=== PATIENT | female | born 1995 | race Caucasian/White ===

== ENCOUNTER 2016-11-01 07:29 | Emergency (ER) | payer BC ==
[2016-11-01] MEDS ORDERED: Tetan/Diph/Pertus SYR(Tdap)* 0.5 ML SYR(BOOSTRIX) use SYR IM ONE (08:57)
[2016-11-01 09:16] VITALS: BP 135/75
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
== END 2016-11-01 09:21 | disposition home or self-care (01) ==
LOC: ED 07:29
DX: S70.352A Superficial foreign body, left thigh, initial encounter (principal); W34.010A Accidental discharge of airgun, initial encounter; Y93.9 Activity, unspecified; Y92.9 Unspecified place or not applicable; Z23 Encounter for immunization; F32.9 Major depressive disorder, single episode, unspecified
CPT/HCPCS: 90471; 90715; 99282

== ENCOUNTER 2017-08-30 23:48 | Emergency (ER) | payer BC ==
--- OUTSIDE RECORDS SUMMARY | 2017-08-31 | XMS REPORT ---
:1995 Author Organization [facility] Address [address] [place] [address] Care Team Providers Name Role Phone Lauro Farnsworth Unavailable Unavailable PROBLEMS Type Condition ICD9-CM Code BTD09-YO Code Onset Condition SNOMED Code Dates Status Problem Amenorrhea, N91.2 Active 36824389 unspecified Problem Nicotine F17.210 Active 251299560 dependence, cigarettes, uncomplicated Problem Premenstrual N94.3 Active 29983788 tension syndrome Problem Family history of Z80.41 Active 711679942 malignant neoplasm of ovary ALLERGIES No Information ENCOUNTERS Encounter Location Date Diagnosis [facility] [address], [place], [place] [id number] [facility] [address] Sep, [place], [place] [id number] [facility] [address] August, [place] [id number] [facility] [address] Nov, Family history of OBGYN [facility], malignant neoplasm of [place] [id number] ovary Z80.41 [facility] [address] Nov, Family history of OBGYN [facility], malignant neoplasm of [place] [id number] ovary Z80.41 ; Encounter for routine checking of intrauterine contraceptive device Z30.431 and Amenorrhea, unspecified N91.2 [facility] [address] [facility] Nov, Encounter for [address] [place], gynecological examination [place] [id number] (general) (routine) without abnormal findings Z01.419 ; Nicotine dependence, cigarettes, uncomplicated F17.210 and Family history of malignant neoplasm of ovary Z80.41 [facility] [address] Nov, OBGYN [place] [id number] [facility] [address] [facility] 12 Mar, [address] [place] [id number] [facility] [address] [facility] 08 Feb, [address] [place], [place] [id number] [facility] [address] [facility] 14 Dec, 2015 Encounter for routine [address] [place], checking of intrauterine [place] [id number] contraceptive device Z30.431 [facility] [address] [facility] Nov, Encounter for insertion [address] [place], of intrauterine [place] [id number] contraceptive device Z30.430 [facility] 103 Sep, Ovulation bleeding N92.3 OBGYN [facility], ; Encounter for other [place] [id number] general counseling and advice on contraception Z30.09 and Family history of malignant neoplasm of ovary Z80.41 [facility] 103 Sep, Ovulation bleeding N92.3 OBGYN [facility], ; Family history of [place] [id number] malignant neoplasm of ovary Z80.41 and Encounter for other general counseling and advice on contraception Z30.09 [facility] [address] 16 Sep, 2015 [place]BGYN [place] [id number] [facility] [address] [facility] 16 Sep, [address] screening [address] [place] [address], for infections with a [place] [id number] predominantly sexual mode of transmission Z11.3 ; Encounter for gynecological examination (general) (routine) with abnormal findings Z01.411 ; Encounter for screening for malignant neoplasm of cervix Z12.4 ; Encounter for other general counseling and advice on contraception Z30.09 ; Nicotine dependence, cigarettes, uncomplicated F17.210 ; Premenstrual tension syndrome N94.3 ; Family history of malignant neoplasm of ovary Z80.41 and Ovulation bleeding N92.3 IMMUNIZATIONS No Known Immunizations SOCIAL HISTORY Never Assessed REASON FOR REFERRAL FUNCTIONAL STATUS PLAN OF CARE VITAL SIGNS MEDICATIONS Unknown Medications PROCEDURES No Known procedures RESULTS No Results REASON FOR VISIT Mirena MEDICAL (GENERAL) HISTORY Type Description Date Medical History Anxiety Medical History Back Problems Surgical History wisdom tooth extraction 2010
--- NOTE | 2017-08-31 01:27 | ED ---
GI/ HPI - HPI Summary HPI Summary: 21F presents with cramping abdominal pain for the past two week. She denies any vaginal discharge. She denies any vaginal bleeding. She states never had before. She states she is concerned that IUD may have moved. IUD strings were not able to seem her primary today. She denies any painful urination. She states she has vomited a couple times due to the pain. She denies any nausea. She denies any fevers. She denies any flank pain. She admits to constipation but denies any diarrhea. She states the pain is intermittent. It is located in the suprapubic. No history of pelvic infections. IUD has been in place for 2 years. - History of Current Complaint Chief Complaint: EDUrogenitalProblems Time Seen by Provider: 08/31/17 00:40 Stated Complaint: ABD PAIN Pain Intensity: 7 - Allergy/Home Medications Allergies/Adverse Reactions: Allergies Allergy/AdvReac Type Severity Reaction Status Date / Time No Known Allergies Allergy Verified 08/30/17 23:54 PMH/Surg Hx/FS Hx/Imm Hx Cardiovascular History: Denies: Hx Myocardial Infarction Psychiatric History: Reports: Hx Depression Infectious Disease History: No Infectious Disease History: Denies: Traveled Outside the US in Last 30 Days - Family History Known Family History: Positive: Cardiac Disease - Positive to grandfather - Social History Alcohol Use: None Substance Use Type: Reports: None Hx Tobacco Use: No Smoking Status (MU): Unknown if Ever Smoked Review of Systems Negative: Fever Negative: Chest Pain Negative: Shortness Of Breath Positive: Abdominal Pain, Vomiting All Other Systems Reviewed And Are Negative: Yes Physical Exam Triage Information Reviewed: Yes Vital Signs On Initial Exam: Initial Vitals Temp Pulse Resp BP Pulse Ox 98.8 F 72 14 146/80 100 08/30/17 23:50 08/30/17 23:50 08/30/17 23:50 08/30/17 23:50 08/30/17 23:50 Vital Signs Reviewed: Yes Appearance: Positive: Well-Appearing Skin: Positive: Warm, Dry Head/Face: Positive: Normal Head/Face Inspection Eyes: Positive: Normal, Conjunctiva Clear Pelvic Exam: Positive: External Exam Normal, Speculum Exam Normal, Blood - trace , Tender w/ Cervical Motion - no chanadlier sign, Other - strings present in IUD Musculoskeletal: Positive: Normal Neurological: Positive: Normal Psychiatric: Positive: Normal Diagnostics - Vital Signs Vital Signs Temp Pulse Resp BP Pulse Ox 08/31/17 00:59 74 131/83 99 08/30/17 23:50 98.8 F 72 14 146/80 100 - Laboratory Result Diagrams: 08/31/17 01:39 08/31/17 01:39 Lab Statement: Any lab studies that have been ordered have been reviewed, and results considered in the medical decision making process. GIGU Course/Dx - Course Course Of Treatment: 21F presents with cramping abdominal pain for the past two week. She denies any vaginal discharge. She denies any vaginal bleeding. She states never had before. She states she is concerned that IUD may have moved. IUD strings were not able to seem her primary today. She denies any painful urination. She states she has vomited a couple times due to the pain. She denies any nausea. She denies any fevers. She denies any flank pain. She admits to constipation but denies any diarrhea. She states the pain is intermittent. It is located in the suprapubic. No history of pelvic infections. IUD has been in place for 2 years. on exam has strings for IUD in place. tenderness over cervic. no abnormal vaginal discharge. patient requesting iud removal which removed. labs wnl. unable to perform u/s due to it being night and no availability. told to follow up with primary. patient understand and agrees with plan. 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
[2017-08-31 01:51] LABS: ABS Basophils 0.1 10^3/ul (0-0.2); ABS Eosinophils 0.1 10^3/ul (0-0.6); ABS Lymphocytes 2.9 10^3/ul (1.0-4.8); ABS Monocytes 0.7 10^3/ul (0-0.8); ABS Neutrophils 4.7 10^3/ul (1.5-7.7); ABS Nucleated RBC 0 10^3/ul; Eosinophil % 0.6 % (0-6); Hematocrit 38 % (35-47); Hemoglobin 13.3 g/dl (12.0-16.0); Lymphocyte % 33.9 % (25-47); Mean Corpuscular HGB Conc 35 g/dl (31-36); Mean Corpuscular Hemoglobin 31 pg (27-31); Mean Corpuscular Volume 90 fL (80-97); Mean Platelet Volume 8.8 um3 (7.4-10.4); Nucleated Red Blood Cells % 0.1; Platelet Count 215 10^3/ul (150-450); Red Blood Count 4.24 10^6/ul (4.0-5.4); Red Cell Distribution Width 14 % (10.5-15); White Blood Count 8.4 10^3/ul (3.5-10.8)
[2017-08-31 02:42] LABS: Urine Appearance Cloudy; Urine Blood Negative (Negative); Urine Color Yellow; Urine Ketones Negative (Negative); Urine Protein Negative (Negative); Urine Specific Gravity 1.016 (1.010-1.030); Urine Urobilinogen Negative (Negative)
[2017-08-31 02:53] VITALS: BP 123/72
== END 2017-08-31 02:55 | disposition home or self-care (01) ==
LOC: ED 23:48
DX: R10.9 Unspecified abdominal pain (principal); Z97.5 Presence of (intrauterine) contraceptive device
CPT/HCPCS: 36415; 80053; 81003; 84702; 85025; 86141; 87480; 87510; 87660; 99282

== ENCOUNTER 2019-03-05 16:42 | Emergency (ER) | payer BC ==
--- OUTSIDE RECORDS SUMMARY | 2019-03-05 16:50 | XMS REPORT | Continuity of Care Document ---
:1995 External Reference #:[id number] Author Name Kathryn Gonzalez NP Address [address] [facility] [place] [address] Care Team Providers Name Role Phone Kenia Calero M.D. - Family Medicine Care Team Information Lifter Driver Unavailable Problems Active Problems Provider Date Indigestion Yadi Aguilar M.D. Onset: 03/08/2011 Social History Type Date Description Comments Sex Unknown Cigarette Use Vape using vape to quit cigarettes Tobacco Use Start: Unknown End: Former Cigarette Smoker 2 quit 2016 Unknown Packs Daily ETOH Use Negative For Denies alcohol use Tobacco Use Start: Unknown Vaping Tobacco Use Start: Unknown End: Patient is a former Unknown smoker Smoking Status Reviewed: 02/23/19 Patient is a former smoker Allergies, Adverse Reactions, Alerts Description No Known Drug Allergies Medications Active Medications SIG Qnty Indications Ordering Provider Date CBD Oil Kathryn Gonzalez NP 02/23/2019 [place] Unknown 0.15-30mg-mcg Tablets History Medications Amoxicillin/Clavulanate 1 by mouth 20tabs H66.93 Kathryn Bejarano 11/14/2018 - Potassium twice a day BONNIE Gonzalez 11/24/2018 875-125mg Tablets x 10 days Immunizations CPT Code Status Date Vaccine Lot # [id number] Given 12/24/2009 Meningococcal Conjugate Vaccine,Serogroups For [id number] Intramuscular Use 99255 Given 04/30/2009 Gardasil vacine typs 6,11,16,18 3 dose schedule [id number] 74617 Given 12/30/2008 Gardasil vacine typs 6,11,16,18 3 dose schedule [id number] 98513 Given 10/28/2008 Gardasil vacine typs 6,11,16,18 3 dose schedule [id number] 88118 Given 02/23/2007 Tdap Tetanus, W Pertussis [id number] 16716 Given 12/17/1999 IPV Inactive Poliovirus Vaccine 90726 Given 12/17/1999 MMR Virus Immunization 06236 Given 12/17/1999 DTP Immunization 97713 Given 04/27/1996 Varicella (Chicken Pox) Immunization 92101 Given 01/03/1996 DTP Immunization 41854 Given 01/03/1996 (Hib) Hemoplilus Influenza B 56023 Given 10/04/1995 MMR Virus Immunization 00402 Given 06/07/1995 Hepatitis B Immunization, Raymond-19 Years 57107 Given 04/05/1995 IPV Inactive Poliovirus Vaccine 84539 Given 04/05/1995 (Hib) Hemoplilus Influenza B 65614 Given 02/01/1995 Hepatitis B Immunization, -19 Years 38018 Given 02/01/1995 IPV Inactive Poliovirus Vaccine 41097 Given 02/01/1995 DTP Immunization 85179 Given 02/01/1995 (Hib) Hemoplilus Influenza B 01947 Given 1994 Hepatitis B Immunization, Raymond-19 Years 04359 Given 1994 IPV Inactive Poliovirus Vaccine 66745 Given 1994 DTP Immunization 57758 Given 1994 (Hib) Hemoplilus Influenza B 77899 Ordered 04/05/1995 DTaP Immunization Vital Signs Date Vital Result Comment 02/23/2019 4:16pm BP Systolic 118 mmHg BP Diastolic 72 mmHg Heart Rate 72 /min Body Temperature 98.4 F Respiratory Rate 16 /min Height 69 inches 5'9" Weight 227.00 lb BMI (Body Mass Index) 33.5 kg/m2 11/14/2018 6:09pm BP Systolic 118 mmHg BP Diastolic 72 mmHg Heart Rate 76 /min Body Temperature 98.4 F Respiratory Rate 16 /min Height 69 inches 5'9" Weight 218.00 lb BMI (Body Mass Index) 32.2 kg/m2 Results Test Date Facility Test Result H/L Range Note Laboratory test 02/23/2019 [facility]al Goldberg(fma) TSH <pending> 0.5-5.0 finding Procedures Description No Information Available Medical Devices Description No Information Available Encounters Type Date Location Provider Dx Diagnosis Office Visit 11/14/2018 Main Office Kathryn Gonzalez, H66.93 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 now is the time to take good care of your body To help improve your condition:Get enough sleep.Eat healthy foods.Keep a regular daily schedule.Get out of the house every day.Exercise every day. Even a little bit of exercise, such as a 15- minute walk, can help.Stay away from alcohol and street drugs.R11.0 NauseaComments:bland diet, avoid alcohol, spicy foods, fatty foods, lmtwovwrZ48.81 Other malaiseComments:The patient was instructed to call or return to the office if there was no improvement . will rule out organic causes with some blood work this may be a cumulative effect of the weather changing, your period coming, and stress but I want to make sure we rule out the other causes first!R04.0 EpistaxisComments:To stop a nose bleed apply direct pressure like I showed you, you can also apply ice packs to help slow the flow of blood. Make sure you lean your head forward so the blood does not go down the back ofyour throat.AllNew Medication:CBD Oil -Comments:Medication Management Patient Understands medications he 's taking? Yes No Are there Barriers to Adherence? Yes No Has the patient been asked about herbal supplements and therapies, andOTC meds? Yes No Care Plan1. Patient has been queried about patient's goals/preferences and functional/ lifestyle goals at relevant visits. If relevant, describe: na2. Treatment goals as explained to the patient: above3. Are there barriers to meeting treatment goals? Yes No If Yes, please describe:4. Self-Management goals as described to the patient: Yes NoAs always, we strongly encourage a healthy diet and making physical activity a part of your every day life. If you have questions about how or where to start, please contact the office. Functional Status Description No Information Available Mental Status Description No Information Available Referrals Description No Information Available
[2019-03-05 16:55] VITALS: BP 151/97
--- NOTE | 2019-03-05 17:14 | UC ---
Nausea/Vomiting/Diarrhea HPI - HPI Summary HPI Summary: Ms. Hung comes in stating that she was seen at her PCPs a few weeks ago and noted to have elevated transaminases. She was told that they would recheck in a couple months. The last couple of days she's had some nausea and vomiting consult some spots of blood. She denies any abdominal pain - History of Current Complaint Chief Complaint: UCGI Stated Complaint: NAUSEA, BLURRED VISION Time Seen by Provider: 03/05/19 16:58 Hx Obtained From: Patient Hx Last Menstrual Period: 03/03/19 Onset/Duration: Gradual Onset Severity Initially: Mild Severity Currently: Mild Pain Intensity: 0 Aggravating Factor(s): Nothing Alleviating Factor(s): Nothing Nausea/Vomiting Presence: Nauseated, Vomiting Vomiting Frequency: Daily Nausea/Vomiting Duration: 2-3 days Vomiting Characteristics: Bloody - Mild Diarrhea Presence: No - Allergies/Home Medications Allergies/Adverse Reactions: Allergies Allergy/AdvReac Type Severity Reaction Status Date / Time No Known Allergies Allergy Verified 08/30/17 23:54 PMH/Surg Hx/FS Hx/Imm Hx Previously Healthy: Yes - Surgical History Surgical History: None - Family History Known Family History: Positive: Cardiac Disease - Positive to grandfather - Social History Alcohol Use: None Substance Use Type: None Smoking Status (MU): Current Every Day Smoker Review of Systems All Other Systems Reviewed And Are Negative: Yes Gastrointestinal: Positive: Vomiting, Nausea Physical Exam - Summary Physical Exam Summary: She is nontoxic in appearance with stable vital signs Triage Information Reviewed: Yes Appearance: Well-Appearing, Obese Vital Signs: Initial Vital Signs Temp 98.7 F 03/05/19 16:51 Pulse 89 03/05/19 16:51 Resp 18 03/05/19 16:51 BP 151/97 03/05/19 16:51 Pulse Ox 100 03/05/19 16:51 Vital Signs Reviewed: Yes Eyes: Positive: Conjunctiva Clear - Anicteric ENT Exam: Normal - Tongue normal Respiratory Exam: Normal Cardiovascular Exam: Normal Abdominal Exam: Normal Neurological Exam: Normal Psychological Exam: Normal Skin Exam: Normal - No jaundice Naus/Vom/Diarrhea Course/Dx - Course Course Of Treatment: We had a conversation about the fact there is very little I can do for her here. I offered to draw blood which will be available tomorrow and give her medication for the nausea. Alternatively I recommended that she should go to the emergency department for more thorough evaluation. She chose not to do anything at this time and to follow-up with her PCP in the next couple days. - Differential Dx/Diagnosis Provider Diagnosis: Nausea & vomiting Discharge ED - Sign-Out/Discharge Documenting (check all that apply): Patient Departure All imaging exams completed and their final reports reviewed: No Studies - Discharge Plan Condition: Stable Disposition: HOME Referrals: Kenia Calero MD [Primary Care Provider] - Additional Instructions: Please follow up with Dr. Calero as soon as possible. If symptoms continue or you feel worse please go to the emergency department. - Billing Disposition and Condition Condition: STABLE Disposition: Home
== END 2019-03-05 17:12 | disposition home or self-care (01) ==
LOC: UCEAST 16:42
DX: R11.2 Nausea with vomiting, unspecified (principal); F17.200 Nicotine dependence, unspecified, uncomplicated
CPT/HCPCS: 99211; G0463